=== PATIENT | female | born 1965 | race Caucasian/White ===

== ENCOUNTER → 2017-06-24 08:23 | Outpatient (CLI) | payer OTHER, SELFPAY ==
--- NOTE | 2017-06-24 08:26 | HPBI_ITS ---
MAMMOGRAPHY - BILATERAL SCREENING REASON FOR EXAM: Female, 51 years old. Routine annual screening examination. PERTINENT HISTORY: Non-contributory. TECHNIQUE: Digital bilateral breast gilbert (3D mammographic acquisition) in the CC and MLO projections. 2-D mediolateral oblique (MLO) and craniocaudad (CC) views of both breasts were obtained. CAD: Full Field Digital Mammography with Computer Added Detection was performed. COMPARISON: Comparison is made with prior outside examination dated November 21, 2014. FINDINGS: Breast Composition: The breasts are heterogeneously dense, which may obscure small masses. There are no dominant masses or suspicious calcifications. Stable bilateral benign appearing axillary lymph nodes. No other significant abnormalities are identified. There has been no significant change since the prior study. HPBI/SCREENING MAMM (CAD), BILAT IMPRESSION: Stable bilateral screening mammogram. Yearly follow-up mammogram recommended. (A) ASSESSMENT CATEGORY: BIRADS Category 2: Benign. A letter regarding these results will be sent to the patient by the facility within 30 days. Approximately 10% of breast cancers are not detected by mammography. A normal mammogram should not delay biopsy of a clinically suspicious abnormality. [id number] Electronically Signed: Moises Byrd MD at 10:11 EST Tel [phone], Service support ,
== END ==
PROVIDERS: Family Provider Family Medicine; PCP Family Medicine; Visit Provider Family Medicine
DX: Z12.31 Encounter for screening mammogram for malignant neoplasm of breast (principal)
CPT/HCPCS: 77063; 77067

== ENCOUNTER → 2020-05-20 | Outpatient (CLI) | payer OTHER, SELFPAY ==
[2020-05-22 20:15] LABS: HPV Reflexed? NOT INDICATED
== END | disposition home or self-care (01) ==
LOC: LABSPEC 15:48
PROVIDERS: PCP Nurse Practitioner Adult Health; Referring Provider Nurse Practitioner Adult Health; Visit Provider Nurse Practitioner Adult Health
DX: Z01.419 Encounter for gynecological examination (general) (routine) without abnormal findings (principal)
CPT/HCPCS: 88175; G0145

== ENCOUNTER → 2020-05-31 08:30 | Outpatient (CLI) | payer OTHER, SELFPAY ==
[2020-05-31 10:48] LABS: Anion Gap 5 (5-15); BUN 19 mg/dL (7-18); BUN/Creat Ratio 22.9 RATIO (10-20); Calcium,Total 9.1 mg/dL (8.5-10.1); Chloride 105 mmol/L (98-107); Cholesterol 187 mg/dL (200); Creatinine, Serum 0.83 mg/dL (0.55-1.02); EST Glomerular Filtration Rate 77 mL/min (>60); Est Glom Filt Rate - Afr Amer 93 mL/min (>60); Glucose 97 mg/dL (74-106); High Density Lipoprotein 65 mg/dL; Sodium Level 139 mmol/L (136-145); Triglycerides 84 mg/dL; Very Low Density Lipoprotein 17 mg/dL (5-40)
== END ==
PROVIDERS: PCP Nurse Practitioner Adult Health; Referring Provider Nurse Practitioner Adult Health; Visit Provider Nurse Practitioner Adult Health
DX: Z13.220 Encounter for screening for lipoid disorders (principal); Z13.1 Encounter for screening for diabetes mellitus
CPT/HCPCS: 36415; 80048; 80061

== ENCOUNTER 2024-01-23 14:09 | Emergency (ER) | payer OTHER, SELFPAY ==
[2024-01-23 14:10] VITALS: BP 117/62; PULSE 86; RESP 16; TEMP 36.6; O2SAT 99
[2024-01-23 14:12] VITALS: BMI 36.1
--- NOTE | 2024-01-23 14:27 | RAD_ITS ---
HISTORY: 4TH finger dislocation. TECHNIQUE: XR Fingers Min 2 Views. COMPARISON: None. FINDINGS: BONES : Impacted and mildly increased fracture at the base of the fourth proximal phalanx. JOINTS: Flexion of the fourth digit. No dislocation. Moderate degenerative change with interphalangeal joint space narrowing and osteophytes. SOFT TISSUES: Soft tissue swelling of the fourth finger. RAD/Finger(s) Min 2 Views IMPRESSION: Fracture at the base of the right fourth proximal phalanx. Electronically Signed: Zuleyma Daniel MD at 15:03 EDT ,
--- NOTE | 2024-01-23 14:35 | EX.ED.GENINJ ---
HPI <AMANDA Wood Last Filed: 01/23/24 16:56> History of Present Illness Chief Complaint: Dislocation Narrative Narrative: Patient presenting today with pain and a dislocation to her right fourth finger after an injury occurred this afternoon. She was riding her horse and was trying to stop the horse and got her finger caught in the reins. She is right-handed. She denies any other injury. PFSH <AMANDA Wood Last Filed: 01/23/24 16:56> [facility] Home Medications ?Medication ?Instructions ?Recorded ?Last Taken ?Type oxycodone-acetaminophen 5 mg-325 1 tab PO Q6H PRN pain 3 days #10 01/23/24 Unknown Rx mg tablet (Endocet) tabs Allergy/AdvReac Type Severity Reaction Status Date / Time No Known Allergies Allergy Verified 01/23/24 14:13 Social History Smoking Status: Unknown if ever smoked ROS <AMANDA Wood Last Filed: 01/23/24 16:56> ROS ED Constitutional Constitutional ED: Denies chills or fever(s) Cardiovascular Cardiovascular: Denies chest pain Respiratory/Chest Respiratory/Chest: Denies dyspnea Gastrointestinal Gastrointestinal: Denies abdominal pain, nausea or vomiting Musculoskeletal Musculoskeletal: Reports arthralgias Integumentary Denies Abrasions Neurologic Neurologic: Denies paresthesias EXAM <AMANDA Wood Last Filed: 01/23/24 16:56> Physical Exam Const Vital Signs: 01/23/24 14:10 01/23/24 15:45 Temperature 98 F 98 F Temperature Source Oral Pulse Rate 86 82 Respiratory Rate 16 18 Blood Pressure 117/62 122/78 H Blood Pressure Mean 80 92 Pulse Ox 99 98 Oxygen Delivery Method Room Air Positive well nourished, well developed and no apparent distress General Appearance ED: well developed HEENT Reports normocephalic and head/scalp atraumatic Mouth ED: Yes moist mucous membranes normal Eyes PERRL and EOMs intact bilaterally Neck full ROM and supple Chest Wall inspection of chest normal Resp normal respiratory effort and clear to auscultation bilaterally Cardio regular rate and regular rhythm Back/Spine normal ROM and normal to inspection Extremity Extremity Narrative: Visible deformity to the right fourth finger, decreased ROM of the right fourth finger at the MCP joint, right radial pulse 2+, good cap refill, sensation intact. Neuro oriented x3, CN's II-XII intact bilaterally, moves all extremities, no focal motor deficits and no sensory deficits noted Sensorium / Orientation: awake and alert Psych mental status grossly normal and thought process normal Skin no rashes or lesions noted and no wounds <Ruben Kaufmna MD - Last Filed: 01/23/24 19:30> Physical Exam Const Vital Signs: 01/23/24 14:10 01/23/24 15:45 Temperature 98 F 98 F Temperature Source Oral Pulse Rate 86 82 Respiratory Rate 16 18 Blood Pressure 117/62 122/78 H Blood Pressure Mean 80 92 Pulse Ox 99 98 Oxygen Delivery Method Room Air PROC <AMANDA Wood - Last Filed: 01/23/24 16:56> Procedures Upper Extremity Splints Upper Extremity Splint: Orthoglass and Ulnar gutter Splint Fabrication: Fabricated Location: Right [facility] <AMANDA Wood - Last Filed: 01/23/24 16:56> [facility] Narrative Medical decision making narrative: Patient presenting today with pain to her right fourth finger after her finger was injured while being pulled on the reins from her horse. She has visible deformity of the finger. X-ray shows a fracture at the base of the right fourth proximal phalanx. I did speak with Dr. Winters, he recommends reducing the finger and placing her in a ulnar gutter splint and having her follow-up on Wednesday. Digital block was performed with 1% lidocaine, the finger was reduced and she was placed in a well-padded Ortho-Glass splint. She tolerated procedure well. I did give her a prescription for Percocet, RICE instructions were discussed. She understands that she is to follow-up on Wednesday. She will be discharged home in stable condition. Radiography X-Ray: Read by ED Physician Diagnostic Testing: Clinical Impression(s) from Imaging Studies Finger X-Ray 01/23/24 14:27 IMPRESSION: Fracture at the base of the right fourth proximal phalanx. Electronically Signed: Zuleyma Daniel MD at 15:03 EDT , <Ruben Kaufman MD - Last Filed: 01/23/24 19:30> MDM MDM Narrative Medical decision making narrative: Patient presenting today with pain to her right fourth finger after her finger was injured while being pulled on the reins from her horse. She has visible deformity of the finger. X-ray shows a fracture at the base of the right fourth proximal phalanx. I did speak with Dr. Winters, he recommends reducing the finger and placing her in a ulnar gutter splint and having her follow-up on Wednesday. Digital block was performed with 1% lidocaine, the finger was reduced and she was placed in a well-padded Ortho-Glass splint. She tolerated procedure well. I did give her a prescription for Percocet, RICE instructions were discussed. She understands that she is to follow-up on Wednesday. She will be discharged home in stable condition. Dr. Kaufman: I have personally performed a face to face assessment of the patient and have reviewed the DAMASO Note. I performed a substantive portion of the visit including all aspects of the following. My castanon findings include: History is injury to right ring finger sustained while riding a horse. Horse reportedly took off and started running very fast, patient pulled back on the rains, and injured her right ring finger. [id number]. Exam is afebrile. Vital signs noted. Focused examination shows mild tenderness palpation and deformity of right ring finger/fourth digit at base. Lateral deviation. Neurovascular intact distally, range of motion limited secondary to pain. Medical Decision Making: Differential diagnosis includes joint dislocation versus fracture versus tendon rupture. X-rays obtained of the right ring finger shows fracture at the base of the proximal phalanx with deformity. Patient discussed with Dr. Winters with hand surgery/plastic surgery. Patient will be placed in ulnar gutter splint, given pain medications and follow-up as outpatient. See procedure note for details. Disposition is discharged home in stable condition. Other additions or changes: [None] History & Record Review Discussion w/independent historian: Patient Radiography Diagnostic Testing: Clinical Impression(s) from Imaging Studies Finger X-Ray 01/23/24 14:27 IMPRESSION: Fracture at the base of the right fourth proximal phalanx. Electronically Signed: Zuleyma Daniel MD at 15:03 EDT , Discharge Plan Triage Chief Complaint: Dislocation ED Midlevel Provider: Ashlyn Patel ED Provider: Ruben Kaufman Dx/Rx/DC Orders Clinical Impression: Finger fracture Instructions: ED Fracture, Finger, Closed Prescriptions: New oxycodone-acetaminophen [Endocet] 5-325 mg tablet 1 tab PO Q6H PRN (Reason: pain) 3 Days Qty: 10 0RF Primary Care Provider: Sly Cao Referrals: Oscar Winters MD [Med Staff - Active Staff] - 2 Days Margo Conner [employer], [employer] [Non-Staff -Ordering Privileges] - Activity Restrictions/Additional Instructions: Please follow-up with Dr. Winters. Print Language: Irish Disposition Disposition: Home, Self Care Discharge Date/Time: 01/23/24 16:28
[2024-01-23] MEDS: Lidocaine 1% (20 ml mdv) 20 ML Vial 10 ML INFILT (14:37)
[2024-01-23 15:45] VITALS: BP 122/78; PULSE 82; RESP 18; TEMP 36.6; O2SAT 98
== END 2024-01-23 16:28 | disposition home or self-care (01) ==
PROVIDERS: Emergency Provider Emergency Medicine; PCP Family Medicine; Visit Provider Emergency Medicine
DX: S62.614A Displaced fracture of proximal phalanx of right ring finger, initial encounter for closed fracture (principal); W23.0XXA Caught, crushed, jammed, or pinched between moving objects, initial encounter; Y93.52 Activity, horseback riding
CPT/HCPCS: 26725; 73140; 99282

== ENCOUNTER 2024-01-28 09:21 | Day surgery (SDC) | payer OTHER, SELFPAY ==
--- NOTE | 2024-01-28 09:53 | PCM.PRE.AN2 ---
ASA Classification* ASA Classification ASA Classification: 2 Assessment & Plan Anesthesia* Anesthesia Assessment Anesthesia Assessment: Discussed sedation and/or anesthesia options, risks, benefits, and alternatives with patient/parents/legal guardian/POA. Questions invited. The patient/parents/legal guardian/POA seems to understand and agrees to proceed with anesthesia plan. Reviewed the physical assessment, medical history, allergy history and patient home medications list prior to surgery/procedure/anesthetic and documented any changes. Performed airway and anesthesia risk assessments. Anesthesia Type Anesthesia Type: MAC (see written pre anesthesia record for full assessment) Anesthesia Focused Assessment* Airway Assessment Mouth opens: >3 cm Mallampati Score: II Focused Labs Anesthesia Preop lab: CBC WBC 7.6 K/mm3 (4.4-11.0) 01/19/17 09:09 RBC 5.29 M/mm3 (4.2-5.4) 01/19/17 09:09 Hgb 14.0 g/dl (12.0-15.0) 01/19/17 09:09 Hct 43.1 % (37-47) 01/19/17 09:09 Plt Count 279 K/mm3 (150-450) 01/19/17 09:09 CHEMISTRY Potassium 4.0 mmol/L (3.5-5.1) 05/31/20 08:33 Sodium 139 mmol/L (136-145) 05/31/20 08:33 BUN 19 mg/dL (7-18) H 05/31/20 08:33 Creatinine 0.83 mg/dL (0.55-1.02) 05/31/20 08:33 Glucose 97 mg/dL (74-106) 05/31/20 08:33 TSH 0.84 uIU/mL (0.358-3.74) 01/19/17 09:09 COAG Pre-Assessment Diagnosis/Proposed Procedure Planned Operative Procedure(s): RIGHT RING FINGER CLOSED REDUCTION PINNING Anesthesia History 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 When Was Last Pacemaker Check QUESTION #4 FULL TEXT: You/Your Family Experience fever (hyperthermia) with Anesthesia Last Oral Intake Last Oral intake: Last Oral Intake NPO since Meds taken in AM with sips of water? Meds patient instructed to take am of surgery PONV PONV - slot machine floor person: PONV - slot machine floor person Female Yes 01/27/24 14:59 HX of Motion Sickness Yes 01/27/24 14:59 HX of N/V After Surgery No 01/27/24 14:59 Non-Smoker Yes 01/27/24 14:59 Duration of Surgery greater No 01/27/24 14:59 than 60 minutes Number of Risk Factors 3 01/27/24 14:59 PONV Score Moderate Risk 01/27/24 14:59 Height & Weight Height & Weight: Anesthesia: Height & Weight Height 5 ft 6 in 01/23/24 14:10 Respiratory Assessment Respiratory Assessment - slot machine floor person: Respiratory Tract Infection Hx - slot machine floor person Hx Respiratory Tract Infection No 01/27/24 14:59 STOP Sleep Apnea STOP Sleep Apnea - slot machine floor person: STOP Sleep Apnea - slot machine floor person Hx Hypertension Yes: CONTROLLED WITH MED 01/27/24 14:59 Hx Sleep Apnea No 01/27/24 14:59 CPAP BIPAP Do you snore loudly (louder No 01/27/24 14:59 than talking or can be heard Do you often feel tired/ No 01/27/24 14:59 fatigued/ sleepy during daytime? Has anyone observed you stop No 01/27/24 14:59 breathing during sleep? STOP Results Negative 01/27/24 14:59 QUESTION #5 FULL TEXT : Do you snore loudly (louder than talking or can be heard through closed doors)? Tobacco Use History Tobacco Use History - slot machine floor person: Tobacco Use History - slot machine floor person Tobacco Use Smoking Status Never smoker 01/27/24 14:59 Hx Tobacco Use No 01/27/24 14:59 Years Smoking Packs Smoked per Day Smoking Cessation Date was within the last 15 years Hx Smoking Cessation Date Hx Smoking Cessation Counseling Hematologic Medial History Hematologic Hx - slot machine floor person: Hematologic Medical Hx - orthoptist Hx of Blood Transfusion No 01/27/24 14:59 Hx of Transfusion in last 3 No 01/27/24 14:59 Months Date of Last Transfusion (if within last 3 months) Ever experience any problems No 01/27/24 14:59 with transfusion(s)? Specify any problems Hx of Preganancy in last 3 No 01/27/24 14:59 Months Nurse Filling Out Transfusion DSCHRIBER 01/27/24 14:59 & Questions: Date: 01/27/24 01/27/24 14:59 Time: 15:00 01/27/24 14:59 Patient unable to answer at this time (ie. confused, unrespo /Reproduction History /Reproductive History - slot machine floor person: /Reproductive Hx- slot machine floor person Hx Now No 01/27/24 14:59 Gestational Age (in weeks): EDC: Hx Hx Para Hx Section SAB No 01/27/24 14:59 Active Medications Active Medications: Current Medications Generic Name Dose Route Start Last Admin Trade Name Freq PRN Reason Stop Dose Admin Cefazolin Sodium 2 gm/ N/A 20 mls @ 400 mls/hr 01/28/24 11:00 IV 01/28/24 11:02 PREOP ONE [facility] Medical History Wears glasses Anxiety Depression Syncope Heartburn Non-smoker Hypertension Home Medications ?Medication ?Instructions ?Recorded ?Last Taken ?Type oxycodone-acetaminophen 5 mg-325 1 tab PO Q6H PRN pain 3 days #10 01/23/24 Unknown Rx mg tablet (Endocet) tabs lisinopril 10 mg tablet 10 mg PO DAILY 01/25/24 01/28/24 08:00 History sertraline 100 mg tablet 150 mg PO DAILY 01/25/24 Unknown History trazodone 50 mg tablet 50 mg PO QHS 01/25/24 Unknown History Allergy/AdvReac Type Severity Reaction Status Date / Time No Known Allergies Allergy Verified 01/28/24 09:49 Surgical History Hx laparoscopic cholecystectomy Social History Smoking Status: Never smoker Review of Systems (Anesthesia) ROS Narrative System reviewed and no additional complaints, except as documented.
[2024-01-28 10:00] VITALS: BP 137/68; PULSE 73; RESP 18; TEMP 37; O2SAT 97; BMI 35.4
--- NOTE | 2024-01-28 10:00 | RAD_ITS ---
Exam: XR Fingers Min 2 Views RIGHT HAND Comparison: January 25, 2024 standard radiograph showing intra-articular fracture of the proximal aspect of the proximal fourth phalanx, best seen on the oblique view. History: FX DOSE: Total DAP: 12.0951 cGy*cm2. Total exposure time: 2 minutes, 22 seconds. Total Air Kerma: 0.7199 mGY. TECHNIQUE: 5 fluoroscopic spot images are provided. FINDINGS: 2 thin metallic pins bridge the fracture of the proximal fourth phalanx on the last image, with well reduced fracture margins on the images provided. RAD/Finger(s) Min 2 Views IMPRESSION: Intraoperative exam fluoroscopic spot films. Electronically Signed: Abbie Stewart MD at 20:25 EDT ,
--- NOTE | 2024-01-28 10:52 | PCM.HP.STD ---
HPI - General HPI Narrative ANTONIO HEADLEY, is a 58 F who presents for right ring finger fracture. Current Encounter (DATE OF SURGERY H&P UPDATE): I saw and examined the patient this morning in pre-operative holding. We discussed risks and benefits of today's surgery and they would like to proceed. NO CHANGE in health history since last seen and evaluated. Ready to proceed with surgery. [facility] Medical History Wears glasses Anxiety Depression Syncope Heartburn Non-smoker Hypertension Home Medications ?Medication ?Instructions ?Recorded ?Last Taken ?Type oxycodone-acetaminophen 5 mg-325 1 tab PO Q6H PRN pain 3 days #10 01/23/24 Unknown Rx mg tablet (Endocet) tabs lisinopril 10 mg tablet 10 mg PO DAILY 01/25/24 01/28/24 08:00 History sertraline 100 mg tablet 150 mg PO DAILY 01/25/24 Unknown History trazodone 50 mg tablet 50 mg PO QHS 01/25/24 Unknown History Allergy/AdvReac Type Severity Reaction Status Date / Time No Known Allergies Allergy Verified 01/28/24 09:49 Surgical History Hx laparoscopic cholecystectomy Social History Smoking Status: Never smoker Vital Signs Vital Signs Vital Signs: 01/28/24 10:00 01/28/24 10:00 Temperature 98.6 F Temperature Source Temporal Pulse Rate 73 Respiratory Rate 18 Respiratory Pattern Normal Blood Pressure 137/68 H Blood Pressure Mean 91 Blood Pressure Source Monitor Blood Pressure Position Semi-Fowlers Blood Pressure Location Right Arm Pulse Ox 97 Oxygen Delivery Method Room Air Weight Weight: 219 lb 2.232 oz Body Mass Index (BMI) 35.4 Physical Exam Narrative Right upper extremity in splint. Fingers warm and well perfused. Assessment & Plan Assessment/Plan (1) Finger fracture: PLAN: Plan I talked the patient extensively about the risks of surgery, including bleeding, infection, damage to surrounding structures, surgical site dehiscence and wound formation, need for wound care, need for repeat operations, failure to obtain the desired result, DVT/PE, and the risks of anesthesia including . All of their questions were answered, and they agreed to proceed with surgery. INTERVAL H&P PLAN, DATE OF SURGERY: We will proceed with surgery today. I mareked her right ring finger.
[2024-01-28] MEDS: Bupivacaine 0.25% 30 ML Vial (11:51)
[2024-01-28] MEDS: Lidocaine 1% (20 ml mdv) 20 ML Vial (11:52)
--- NOTE | 2024-01-28 12:13 | PCM.POST.ANE ---
Anesthesia: Postop Eval I Current Vital Signs Temperature: 97 F Pulse Rate: 67 Blood Pressure: 116/68 Respiratory Rate: 18 Pulse Ox: 95 Oxygen Delivery Method: Room Air Assessment Airway patent: Yes Spontaneous unlabored respirations: Yes Mental status: Awake and Calm nausea: No Vomiting: No Anesthesia Complication: No Fluid Hydration Crystalloid volume administer (ml): 30 Total IV fluid infused: 30 Progress Note Post-operative progress note: DENIES PAIN Anesthesia document: Postop Eval 1 completed: Yes
[2024-01-28 12:16] VITALS: BP 116/68; BP 137/68; PULSE 71; RESP 16; TEMP 36.3; O2SAT 96
[2024-01-28 12:19] VITALS: BP 116/68; PULSE 67; RESP 18; TEMP 36.1; O2SAT 95
[2024-01-28 12:20] VITALS: BP 107/63; BP 137/68; PULSE 72; RESP 16; O2SAT 96
[2024-01-28 12:26] VITALS: BP 122/65; BP 137/68; PULSE 69; RESP 16; TEMP 36.7; O2SAT 94
--- NOTE | 2024-01-28 12:31 | PCM.OP.BLANK ---
Operative Report Date of Procedure: 01/28/24 Surgery/Procedure Date: 28 Jan 2024 Incision/Procedure Start Time: 11:42 AM Incision Close/Procedure End Time: 12:10 PM (28 minutes) PATIENT: Alma Delia Yoon SURGEON: Oscar Winters MD PRE-OPERATIVE DIAGNOSIS: Right ring finger proximal phalanx transverse base fracture, closed POST-OPERATIVE DIAGNOSIS: Same PROCEDURE PERFORMED: 1) closed reduction percutaneous pinning of right ring finger (CPT 17959) OPERATIVE FINDINGS: Easily reducible fracture INDICATIONS: Patient is a 58-year-old woman with a right ring finger fracture after she was riding a horse. I talked her about her scissoring deformity and how it is relatively subtle and can be slightly corrected potentially with closed reduction percutaneous pinning. I talked her about stiffness. She has reasonable expectations. She understands that she will be in a splint afterwards followed by cast. I talked her about the risks of surgery including bleeding infection damage to surrounding structures failure to obtain the desired result and need for repeat operations. She elected to proceed OPERATIVE DETAILS: Patient was correct identified in preoperative holding and marked the right ring finger. Patient was in agreement. She was taken back to the operating room where she was administered some sedation and then I performed a 13 cc 1% plain lidocaine and 0.25% Marcaine (50-50 mixture) block for ring finger block. Once appropriate level of anesthesia was obtained we prepped and draped in sterile fashion. The C arm was brought in and the fracture was identified and confirmed on the P1 base of the right ring finger. It was reduced by manual manipulation closed. I then drove to 0.35 K wires from the distal ulnar side of P1 through the base of P1 on the radial side to maintain a reduction, crossing the wires at the fracture site. Care was taken not to injure the joint with wires. Reduction was confirmed with a lateral and a PA x-ray. I then examined her cascade and she had improved finger cascade with less overlap between the ring and the long finger no rotation. She was able to participate in this part of the exam as she was lucent (able to make a fist). I the trimmed the K wires beneath the skin and placed Dermabond over the skin and Xeroform. I then placed an ulnar gutter splint. Patient tolerated the procedure well was taken the PACU in stable condition. EBL: Minimal Anesthesia: Sedation and local ASA: 2 IVF: 30 cc of LR UOP: Unmeasured Transfusions: None 2 g of Ancef for preoperative antibiotics POST-OPERATIVE PLAN: Keep splint dry and elevate hand for pain control. Follow up at [facility] on 01 February 2024 for wound check and change into an ulnar gutter cast.
[2024-01-28 12:53] VITALS: BP 137/68
--- NOTE | 2024-01-28 13:53 | POSTOPAN2_ITS ---
Anesthesia Postop Eval I Sum Postop Eval Completion status Anesthesia document: Postop Eval 1 completed: Yes Anesthesia Postop Eval I Summary Anesthesia Postop Eval I Summary: Anesthesia Postop Eval I: Assessment Summary Airway patent Yes 01/28/24 12:19 [email or web address] Spontaneous unlabored Yes 01/28/24 12:19 [email or web address] respirations Mental status Awake,Calm 01/28/24 12:19 [email or web address] nausea No 01/28/24 12:19 [email or web address] Vomiting No 01/28/24 12:19 [email or web address] Anesthesia Postop Eval I: Fluid Summary Crystalloid volume administer 30 01/28/24 12:19 [email or web address] (ml) Colloids volume administered ( ml) Blood Product volume administered (ml) Total IV fluid infused 30 01/28/24 12:19 [email or web address] Anesthesia Postop Eval I: Summary Notes Anesthesia Complication No 01/28/24 12:19 [email or web address] Anesthesia Complication Comment: Post-operative progress note DENIES PAIN 01/28/24 12:19 [email or web address] Anesthesia: Postop Eval II Evaluation Mental status: Awake Pain Level: 0 nausea: No Vomiting: No
--- NOTE | 2024-01-28 13:53 | PCM.POSTANE2 ---
Anesthesia Postop Eval I Sum Postop Eval Completion status Anesthesia document: Postop Eval 1 completed: Yes Anesthesia Postop Eval I Summary Anesthesia Postop Eval I Summary: Anesthesia Postop Eval I: Assessment Summary Airway patent Yes 01/28/24 12:[address] [email or web address] Spontaneous unlabored Yes 01/28/24 12:19 [email or web address] respirations Mental status Awake,Calm 01/28/24 12:[address] [email or web address] nausea No 01/28/24 12:[address] [email or web address] Vomiting No 01/28/24 12:[address] [email or web address] Anesthesia Postop Eval I: Fluid Summary Crystalloid volume administer 30 01/28/24 12:19 [email or web address] (ml) Colloids volume administered ( ml) Blood Product volume administered (ml) Total IV fluid infused 30 01/28/24 12:[address] [email or web address] Anesthesia Postop Eval I: Summary Notes Anesthesia Complication No 01/28/24 12:19 [email or web address] Anesthesia Complication Comment: Post-operative progress note DENIES PAIN 01/28/24 12:19 [email or web address] Anesthesia: Postop Eval II Evaluation Mental status: Awake Pain Level: 0 nausea: No Vomiting: No
== END 2024-01-28 12:55 | disposition home or self-care (01) ==
LOC: SDC 10:14 → AC 11:15
PROVIDERS: PCP Family Medicine; Referring Provider Surgery Plastic and Reconstructive Surgery; Visit Provider Surgery Plastic and Reconstructive Surgery
PROC: (CPT 26727; principal; 2024-01-28 10:45)
DX: S62.614A Displaced fracture of proximal phalanx of right ring finger, initial encounter for closed fracture (principal); X58.XXXA Exposure to other specified factors, initial encounter; I10 Essential (primary) hypertension; F32.A Depression, unspecified; F41.9 Anxiety disorder, unspecified; Z79.899 Other long term (current) drug therapy
CPT/HCPCS: 26727; 01820; 73140; 76000; A4216; J2405

== ENCOUNTER 2024-03-09 07:35 | Day surgery (SDC) | payer OTHER, SELFPAY ==
[2024-03-09 07:52] VITALS: BP 132/64; PULSE 82; RESP 16; TEMP 36.1; O2SAT 94; BMI 34.3
--- NOTE | 2024-03-09 08:00 | RAD_ITS ---
Age: 58 years Exam: XR Hand 2 Views RIGHT Comparison: March 07, 2024. History: HARDWARE REMOVAL RT RING FINGER Exposure: Total exposure time 52 seconds, longest single exposure 15 seconds. Total DAP: 5.0737 cGy*cm2. Total Air Kerma: 0.302 mGy. Total images: 18 images acquired, 4 images saved. IMAGES: Initially 2 pin like orthopedic structures are seen in the fourth metacarpal, removed. No distraction. RAD/Hand 2 Views IMPRESSION: Intraprocedural exam. Electronically Signed: Abbie Stewart MD at 2:33 EST ,
--- NOTE | 2024-03-09 08:52 | HP.PCM.SX_ITS ---
HPI - General HPI Narrative ANTONIO HEADLEY, is a 58 F who presents for right ring finger pin removal. Current Encounter (DATE OF SURGERY H&P UPDATE): I saw and examined the patient this morning in pre-operative holding. We discussed risks and benefits of today's surgery and they would like to proceed. NO CHANGE in health history since last seen and evaluated. Ready to proceed with surgery. [facility] Medical History Wears glasses Anxiety Depression Syncope Heartburn Non-smoker Hypertension Home Medications ?Medication ?Instructions ?Recorded ?Last Taken ?Type lisinopril 10 mg tablet 10 mg PO DAILY 01/25/24 03/09/24 History sertraline 100 mg tablet 150 mg PO DAILY 01/25/24 Unknown History trazodone 50 mg tablet 50 mg PO QHS 01/25/24 Unknown History oxycodone 5 mg tablet 5 mg PO Q6H 5 days #10 tabs 02/29/24 Unknown Rx Allergy/AdvReac Type Severity Reaction Status Date / Time No Known Allergies Allergy Verified 03/09/24 07:50 Surgical History Hx laparoscopic cholecystectomy Social History Smoking Status: Never smoker alcohol intake: never substance use type: does not use Vital Signs Vital Signs Vital Signs: 03/09/24 07:52 Temperature 97 F L Temperature Source Temporal Pulse Rate 82 Respiratory Rate 16 Blood Pressure 132/64 H Blood Pressure Mean 86 Blood Pressure Source Monitor Blood Pressure Position Semi-Fowlers Blood Pressure Location Left Arm Pulse Ox 94 Oxygen Delivery Method Room Air Weight Weight: 213 lb Body Mass Index (BMI) 34.3 Physical Exam Narrative RIGHT UPPER EXTREMITY Cast removed today in clinic. no pin site problems, no signs of infection. no rotation or angulation of the right ring finger. good cascade. No scissoring Today she does not have pain to palpation over the fracture site, just a little pain over the pins where they are beneath the skin. Assessment & Plan Assessment/Plan (1) Finger fracture: PLAN: INTERVAL H&P PLAN, DATE OF SURGERY: We will proceed with surgery today (Right ring finger pin removal) I talked the patient extensively about the risks of surgery, including loss of reduction/fracture. The benefits and alternatives of this surgery were also discussed. All of their questions were answered, and they agreed to proceed with surgery. She will see hand therapist later this week and be transitioned into a removable splint.
[2024-03-09] MEDS: Cefazolin 2 GM in Syringe IV (09:18)
[2024-03-09 09:20] VITALS: BP 119/58; BP 125/72; BP 132/66; O2SAT 93; O2SAT 94; O2SAT 95; O2SAT 96; O2SAT 97
[2024-03-09] MEDS: Lidocaine 1% (30 ml sdv) 30 ML Vial (09:45)
[2024-03-09 10:01] VITALS: BP 132/64; BP 136/64; PULSE 83; RESP 16; TEMP 36.3; O2SAT 94
--- NOTE | 2024-03-10 05:51 | OP.PCM_ITS ---
Operative Report (Standard) Operative Information Surgery/Procedure Performed: Right ring finger pin removal, CPT 13444 Surgeon: Oscar Winters Date of Procedure: 03/09/24 Procedure Start Time: :31 Procedure Stop Time: :43 Pre-Operative Diagnosis: Right ring finger proximal phalanx fracture s/p CRPP Post-Operative Diagnosis: Same Select all DRAINS/GRAFTS/IMPLANTS that apply: None Type of Anesthesia: Local (7 cc of 1% lidocaine ) Estimated Blood Loss: minimal Specimen collected: No Description of surgery: Indications: Patient is a 58-year-old female who underwent CRPP for right ring finger fracture of the proximal phalanx 6 weeks ago. She is no longer tender at the fracture site and is showing radiographic evidence of healing. She presents today for pin removal. Procedure details: Patient was correctly identified in preoperative holding and taken back to the operating room where she was administered a local block. The C-arm was brought into the room and x-rays were taken of the fracture site. The hand was prepped and draped in sterile fashion. A timeout was performed. 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 The fracture was examined with the C arm and appeared to be stable after the pins were removed. The small stab incisions were then closed with a 4-0 Chromic Gut suture. A splint was then applied. Patient tolerated the procedure well. Postoperative plan: Immediately following the procedure patient was scheduled with occupational therapy for later in the day for custom splint (removable) and range of motion. No lifting, and she should just to therapy exercises. Follow- up with me early next week in clinic. 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
== END 2024-03-09 10:05 | disposition home or self-care (01) ==
LOC: SDC 07:36 → AC 07:37
PROVIDERS: PCP Family Medicine; Referring Provider Surgery Plastic and Reconstructive Surgery; Visit Provider Surgery Plastic and Reconstructive Surgery
PROC: (CPT 20670; principal; 2024-03-09 08:45)
DX: S62.614D Displaced fracture of proximal phalanx of right ring finger, subsequent encounter for fracture with routine healing (principal); X58.XXXD Exposure to other specified factors, subsequent encounter; I10 Essential (primary) hypertension; Z79.899 Other long term (current) drug therapy
CPT/HCPCS: 20670; 73120; 76000; A4216

== ENCOUNTER 2024-04-27 15:00 | Outpatient (RCR) | payer OTHER, SELFPAY ==
--- NOTE | 2024-03-10 11:50 | HP.OTEVAL ---
Patient's Visit Information Visit Information Visit Information: ANTONIO HEADLEY is a 58 year old F, referred to Occupational Therapy by Dr. Oscar Winters MD, with a diagnosis of right RF intra-arthicular phalax fx.. Date of Evaluation: 03/09/24 Occupational Therapist: Chanel Kincaid, DORAR/Chato, CHT Subjective Subjective: This 58 year old female was seen for OT eval dx of right Ring finger intra-articular fracture of the proximal aspect of the proximal fourth phalanx. pt suffered injury on 01/23/24(riding her horse) and underwent pinning of fx on 01/28/24. Pt arrives today after hardware removal this am 03/09/24 for custom orthosis to provide protection and support while structures continue to heal. Pt arrived with her in soft padded splint. Pt states she is feeling fine- pain is manageable just feeling of pressure. pt arrives today and states her is helping her with IADls and ADLs. pt is trying to work and type ( hand makes it difficulty) Pain right hand: Current Pain Intensity: 2 Pain Intensity Range: 2 and 5 ROM Wrist: right/left WFL ROM Comments: right RF demo MCP flexion at 20* PIP motion of 10* but recent hardware removal this day pt compromised by forming composite fist at this time left hand full tight composite fist Strength Strength Comments: will test later date Sensation Sensation Comments: denies Quick DASH-Disab of Arm,Shoulder& Hand Quick DASH Score: 60.0000 Goals Goal:ROM equal to unaffected hand: Yes Goal:Mud Jack Nozzle Worker/Pinch strength at least 75% of unaffected hand: Yes Comment: will initiate at week 8 s.p or unless DrSiddharth indicates otherwise Goal:No pain with affected hand use: Yes Goal:Full use of affected hand in daily activities including work: Yes Other Goal: orthosis use: pt will demo IND donning and doffing of orthosis by end of 1st session. pt will demo understanding of orthosis precautions by ed of 1st session. Rehabilitation General Assessment: pt arrives following hardware removal this am. pt in need of custom orthosis to allow for continued healing and support. Pt is currently limited with all ADLS and IADLs at this time. Pt demo need for skilled OT services 1-2x week for 8 weeks to return pt to a PLOF. Today therapist jarad. custom orthosis hand based with LF and RF in safe position- therapist ed. pt to remove and initiate gentle ROM of digits (tendon glide) and edema control due to recent procedure. therapist ed. pt to allow for washing hand is ok but not to soak hand in water due to newly removed pins and new sutures. pt and pts spouse demo understanding and agree to POCm=. Rehabilitation Potential: Good Anticipated Interventions Anticipated Interventions: A/AAROM/PROM, Strengthening, Edema Control, Desensitization, Wound Care, Modalities, Orthoses, Joint Protection/Energy Conservation, Ergonomic Education, ADL Training, Education re assistive Equipment, Education re Diagnosis, Caregiver Training and Home Program Visit Plan Frequency: 1-2x /Week Duration: 6-8 weeks General Plan: initiate ROM (give tendon glide handout) edema control TEXT: Thank you for the opportunity to evaluate your patient. For Medicare and Medicare HMO plans, please review the plan of care and approve it. It will need to be FAXED BACK to us at [phone] for Medicare purposes. Please let me know if there are questions or concerns regarding this plan of care. Physician Signature: Date:
--- NOTE | 2024-06-22 08:33 | HP.OT.NRP ---
Patient Information Patient Information: ANTONIO HEADLEY was seen in my office for initial evaluation on 03/09/24. The following Plan of Care was established for this patient: POC Established Initial Frequency: 1-2x /Week Initial Duration: 6-8 weeks Plan: cont to increase pts functional ROM of ring and LF Anticipated Interventions Anticipated Interventions: A/AAROM/PROM, Strengthening, Edema Control, Desensitization, Wound Care, Modalities, Orthoses, Joint Protection/Energy Conservation, Ergonomic Education, ADL Training, Education re assistive Equipment, Education re Diagnosis, Caregiver Training and Home Program Last Seen Last Seen: This patient was last seen in our office 04/27/24. Pertinent comments regarding their Occupational therapy will appear below: This 58 year old female seen with dx of R ring finger intra- articular fx. Pt progressed throughout POC in pain reduction as well as improved ROM. Discharge from OT caseload at this time due to lapse in time of services with no additional visits scheduled. At this point I will be discontinuing this patient from occupational therapy. I would be happy to see this patient again in the future if found appropriate by the physician. Thank you! Starr Cullen
== END 2024-04-27 19:00 | disposition home or self-care (01) ==
LOC: OT 15:00
PROVIDERS: PCP Family Medicine; Referring Provider Surgery Plastic and Reconstructive Surgery; Visit Provider Surgery Plastic and Reconstructive Surgery
DX: S62.609D Fracture of unspecified phalanx of unspecified finger, subsequent encounter for fracture with routine healing (principal)
CPT/HCPCS: 97110; 97140; 97166; 97530; 97760